=== PATIENT | female | born 1955 | race African-American/Black ===

== ENCOUNTER 2017-06-03 16:22 | Inpatient (IN) | payer MEDICAID ==
[~2017-06-03] VITALS: Ht 162.6 cm; Wt 93.5 kg
--- NOTE | ~2017-06-03 | CON ---
PATIENT'S NAME: SURY TY [facility] AGE: 62 Y [address] ROOM: [place] [address] LOCATION: GPCU ADMIT DATE: 06/03/2017 Consultation DISCHARGE DATE: 06/04/2017 FAMILY PHYSICIAN: Modesto Han MD ATTENDING PHYSICIAN: Gerhard Hobson REFERRING PHYSICIAN: Mohamud Zhang MD REFERRING PHYSICIAN: Gerald Pineda DO. FAMILY PHYSICIAN: Mohamud Zhang MD. REASON FOR CONSULT: Profound bradycardia. HISTORY OF PRESENT ILLNESS: This is a 62-year-old, black female who was admitted to the emergency room via 911. She presented with a chief complaint of chest pressure, apparently the patient found out by her family member was heading to basic training and she fell like she was "getting a little anxious and developed some chest pain, mild shortness of breath, and felt like she was going to pass out." She states I was just "out of it." She reports she has had several episodes of feeling lightheaded. She denied any exertional chest heaviness. She has had problems with shortness of breath intermittently. She denies any presyncope or syncopal episodes. She does carry a history of nonobstructive coronary artery disease as well as hypertension and diabetes mellitus. She underwent a left heart catheterization on 04/11/2016, showing 20%-30% stenosis in three vessels. When EMS arrived to the house, they did notice that her heart rate was 23, junctional rhythm. She was placed on temporary transthoracic pacemaker. Her blood pressures were low in the 80s to 70s. She felt nauseated. She also felt a little diaphoretic. She does answer questions appropriately. There is no report of orthopnea, PND, or pedal edema. PAST MEDICAL HISTORY: 1. Nonobstructive coronary artery disease. 2. Diastolic congestive heart failure. 3. Migraines. 4. Peripheral neuropathy. 5. COPD. 6. Diabetes mellitus. 7. Arthritis. 8. Fibromyalgia. 9. Gastroesophageal reflux disease. 10. Dyslipidemia. PATIENT'S NAME: SURY TY [facility] AGE: 62 Y [address] ROOM: [place] [address] LOCATION: GPCU ADMIT DATE: 06/03/2017 Consultation DISCHARGE DATE: 06/04/2017 FAMILY PHYSICIAN: Modesto Han MD ATTENDING PHYSICIAN: Gerhard Hobson 11. Essential hypertension. 12. History of chronic pancreatitis. PAST SURGICAL HISTORY: 1. 04/11/2016, left heart catheterization with 20%-30% narrowing in three- vessel. 2. x2. 3. Hernia repair. 4. Left leg ORIF. 5. She had a heart catheterization radial approach in 2008. ALLERGIES: PENICILLIN, MILK CONTAINING PRODUCTS, IBUPROFEN, TRAMADOL, CEPHALEXIN. HOME MEDICATIONS: 1. Albuterol HFA two puffs q.6 hours p.r.n. 2. Aspirin 81 mg daily. 3. Atorvastatin 20 mg daily. 4. Invokana 300 mg every day. 5. Advair 500/50 Diskus one puff b.i.d. 6. Furosemide 20 mg every day p.r.n. edema. 7. Gabapentin 300 mg p.o. t.i.d. 8. Insulin Levemir 20 units subcu h.s. 9. Humalog insulin per insulin sliding scale. 10. Losartan/hydrochlorothiazide 100/25 one p.o. daily. 11. Metformin 1000 mg b.i.d. 12. Metoprolol 100 mg every day. 13. Singulair 10 mg every day. 14. Oxycodone HCl/acetaminophen 1-2 tabs every 4-6 hours as needed. 15. Protonix 40 mg every day. 16. Diltiazem 360 mg p.o. daily. FAMILY HISTORY: Mother had congestive heart failure, pneumonia, and stroke, she is . Father had pancreatic cancer, he is . Has a well-living child. SOCIAL HISTORY: She smoked a half pack of cigarettes a day for 6 years, she quit in 1997. REVIEW OF SYSTEMS: GENERAL: She has been a little more fatigued. She has complaints of increased anxiety. HEAD: No history of headache. EYES: She wears corrective lenses. EARS: She does have some hearing loss. PATIENT'S NAME: SURY TY [facility] AGE: 62 Y [address] ROOM: [place] [address] LOCATION: GPCU ADMIT DATE: 06/03/2017 Consultation DISCHARGE DATE: 06/04/2017 FAMILY PHYSICIAN: Modesto Han MD ATTENDING PHYSICIAN: Gerhard Hobson NOSE: No problems with rhinorrhea. She does complain of seasonal allergy. MOUTH: She is edentulous. THROAT: No difficulty with swallowing. PULMONARY: Denies cough or hemoptysis. GASTROINTESTINAL: Negative for nausea, vomiting, or diarrhea. No melena or hematochezia. She has had a little nausea today. MUSCULOSKELETAL: She has a history of fractured leg. She does walk with a limp and a cane at a time. NEUROLOGIC: She has problems with fibromyalgia. ENDOCRINE: She has diabetes mellitus. PHYSICAL EXAMINATION: GENERAL: She is awake. Her skin is warm and dry. She complains of pain with pacemaker pacing. EYES: Pupils were equal, round, and react briskly. NECK: Soft and supple. There is no JVD noted. LUNGS: Sounds were clear. CV: Regular with a 1-1 paced rhythm. ABDOMEN: Soft. Bowel sounds are present. EXTREMITIES: Show no peripheral edema. No clubbing. No cyanosis. VITAL SIGNS: Her height 5 feet 4 inches, her weight is 93.5 kg or 206 pounds. Blood pressure was 80-90. Heart rate was 60 paced rhythm. LABORATORY DATA: INR is 1.05, her glucose was 209, BUN 14, creatinine 1.9. Sodium 139, potassium was reported at 7.3, chloride 109. CBC: White count was 12.6, hemoglobin 12.6, and platelets were 168. ASSESSMENT: 1. Profound bradycardia. We are going to take her to the school laboratory technician for temporary pacemaker. She is hypotensive as well. The etiology is unclear at this time. 2. Hyperkalemia. We will recheck potassium to rule out hemolyzation. 3. Diabetes mellitus. We will ask the hospitalist to follow along with us. The assessment and plan, history of present illness, and physical exam are per Dr. Hobson. PABLO PALMER APRN FOR GERHARD HOBSON MD TGP/modl PATIENT'S NAME: SURY TY [facility] AGE: 62 Y [address] ROOM: [address] [address] [facility] ADMIT DATE: 06/03/2017 Consultation DISCHARGE DATE: 06/04/2017 FAMILY PHYSICIAN: Modesto Han MD ATTENDING PHYSICIAN: Gerhard Hobson /[id number] d: 06/05/17 1405 t: 06/26/17 1619, CONSULTATION REPORT
--- NOTE | ~2017-06-03 | OR ---
PATIENT'S NAME: SURY PENNY [facility] AGE: 62 Y [address] ROOM: [address] [address] LOCATION: GPCU ADMIT DATE: 06/03/2017 OR/Procedure Report DISCHARGE DATE: 06/04/2017 FAMILY PHYSICIAN: Modesto Han MD ATTENDING PHYSICIAN: Gerhard Quinteros SURGEON: Gerhard Quinteros MD SPORTS WRITER: DATE OF PROCEDURE: 06/03/2017 PRIMARY CARE: Dr. Zhang. INDICATION: Symptomatic junctional bradycardia. PROCEDURE: Dual chamber pacemaker implantation. COMPLICATIONS: None. DESCRIPTION OF PROCEDURE: Ms. Penny was brought semi-urgently to the cardiac cath lab radiology technician for pacemaker implantation. External pacemaker was in place. She was prepped and draped in normal manner. 1% lidocaine was used for local skin infiltration in the left infraclavicular region. Next, an 18-gauge Cook needle was advanced into the left subclavian vein, through which a 0.025 wire was placed. The needle was removed. Proximal end of the wire was attached to the surgical gown with a hemostat. Next, a second access point was obtained also with an 18-gauge Cook needle. A 0.025 wire was placed. Needle was removed. Proximal end of the wire was attached to the surgical gown. Attention was then turned towards creation of the pacemaker pocket, where additional 1% lidocaine was given. Next, a #11 blade was used for primary skin incision. Following this, blunt dissection as well as use of Bovie cautery was used for identification of the pectoralis fascia. This was entered into and dissected both cephalad as well as caudally. Next, the previously placed 0.025 wires were brought through the skin into the pacemaker pocket. The first wire had a 6-American sheath placed onto it. The wire and dilator were removed. Next, using fluoroscopic guidance, the right ventricular lead was placed. This was a [employer]ity, model #7741, serial #[id number]. Thresholds were obtained showing an intrinsic R-wave of 14 mV, threshold 0.4 volts, 0.4 msec pulse width, and impedance of 879 ohms. Following this, the shoulder sleeve was anchored into the pectoralis muscle with 2 interrupted sutures of 0 silk. Following this, the second 0.025 wire had a 6-American sheath placed onto it. The wire and dilator were removed. Next, using fluoroscopic, the right atrial lead was placed. This was also a [place] [employer] Ingevity, model #7740. Thresholds were obtained showing an intrinsic P-wave of 2.9 mV, threshold 0.6 V, 0.4 msec pulse width, and impedance of 631 ohms. Next, the shoulder sleeve was anchored into the pectoralis muscle using 2 interrupted sutures of 0 silk. PATIENT'S NAME: SURY PENNY [facility] AGE: 62 Y [address] ROOM: [place] [address] LOCATION: GPCU ADMIT DATE: 06/03/2017 OR/Procedure Report DISCHARGE DATE: 06/04/2017 FAMILY PHYSICIAN: Modesto Han MD ATTENDING PHYSICIAN: Gerhard Quinteros Following this, both of these leads were then connected to the pacemaker generator, which was a [place] [employer]ent[employer], model #L111, serial #[id number]. Next, the generator was connected. Leads were placed back into the pocket. The overlying subcutaneous tissue was closed with 2-0 Vicryl in a running fashion. Following this, the subcuticular layer was closed with 4-0 Vicryl also in a running fashion. Steri-Strips were applied as well as pressure dressing and Tegaderm. The patient had been placed in a shoulder immobilizer prior to the onset of the study. CONCLUSION: 1. Dual-chamber pacemaker implantation for symptomatic junctional bradycardia. 2. The patient is instructed to use the shoulder immobilizer for the next 1 week. 3. The patient will be instructed on use of the home remote monitoring Hudson system. 4. Chest x-ray is pending at the time of this dictation. I would like to thank Dr. Zhang for the opportunity to participate in the care of Mrs. Penny. MD SHASHI TAYLOR/scotty /[id number] CC: Mohamud Zhang MD d: t: 07/03/17 0826, OPERATIVE SUMMARY
--- NOTE | ~2017-06-03 | ER ---
PATIENT'S NAME: SURY TY [facility] AGE: 62 Y [address] ROOM: [place] [id number] LOCATION: GPCU ADMIT DATE: 06/03/2017 ER/Outpatient Report DISCHARGE DATE: FAMILY PHYSICIAN: Modesto Han MD ATTENDING PHYSICIAN: Gerhard Quinteros Time of Arrival: 1621 hours. Time of Evaluation: 1621 hours. CHIEF COMPLAINT: Chest pressure. HISTORY OF PRESENT ILLNESS: The patient is a 62-year-old female, who presents to the emergency department today with a chief complaint of chest pressure. Apparently, the patient found out her family member was heading to basic training. She reports she felt like she was getting anxious with this. She developed this chest pressure at that time. She does have some mild shortness of breath with this. She does feel like she was going to pass out. When EMS arrived, she was noted to have heart rate 23. She denies any fevers or chills. No nausea or vomiting. The patient continues to be alert and oriented. PAST MEDICAL HISTORY: Hypertension, diastolic congestive heart failure, migraines, peripheral neuropathy, COPD, arthritis, fibromyalgia, gastroesophageal reflux disease, diabetes type 2. PAST SURGICAL HISTORY: x2, hernia repair, left leg open reduction and internal fixation. FAMILY HISTORY: Mother with history of heart failure as well as pneumonia and stroke. Father with history of pancreatic cancer. SOCIAL HISTORY: The patient is a former cigarette smoker. Smoked half pack per day per week for 6 years. Quit in 1987. Denies any alcohol or illicit drug use. ALLERGIES: TO PENICILLIN, WHICH CAUSES A RASH. IBUPROFEN CAUSES NAUSEA AND INDIGESTION. TRAMADOL CAUSES RASH AND ITCHING. CEPHALEXIN CAUSES STOMACHACHE AND ITCHING. MEDICATIONS: Please see list. PATIENT'S NAME: SURY TY [facility] AGE: 62 Y [address] ROOM: [address] [address] LOCATION: GPCU ADMIT DATE: 06/03/2017 ER/Outpatient Report DISCHARGE DATE: FAMILY PHYSICIAN: Modesto Han MD ATTENDING PHYSICIAN: Gerhard Quinteros PRIMARY CARE DOCTOR: Dr. Zhang. REVIEW OF SYSTEMS: All systems are reviewed by myself and are negative with the exception of those discussed in the HPI and past medical history. PHYSICAL EXAMINATION: VITAL SIGNS: The patient is currently being paced at 60 beats per minute, blood pressure is 93/67, oxygen saturation 96% on 4 L nasal cannula, temperature 98.4. GENERAL: The patient is a 62-year-old female, who appears stated age. She is sleepy after receiving Valium, however, she will awaken and answer questions. She is oriented to person, place, and time and president. NECK: Supple. There is no nuchal rigidity. CARDIOVASCULAR: Bradycardic. No murmurs, rubs, or gallops. LUNGS: Clear to auscultation bilaterally. No wheezes, rales, or rhonchi. ABDOMEN: Soft, nontender, and nondistended. No rebound, rigidity, or guarding. MUSCULOSKELETAL: The patient moves all 4 extremities. NEUROLOGICAL: GCS of 14. Oriented to person, place, time, and president. SKIN: Warm and dry. LABORATORY DATA AND X-RAYS: Labs and x-rays are obtained. Multiple EKGs are obtained. The first one at 1559 hours from EMS. It does show a junctional rhythm with a rate of 23, normal axis, AZ interval 174, QTc of 548. No ST elevation or ST depression, T- wave inversions. Repeat EKG here in the emergency department at 1645 hours shows sinus rhythm with a rate of 41, normal axis, QTc of 515, AZ interval 204. No ST elevation or ST depression, T-wave inversions. CBC: White blood cell count 12.6, otherwise normal. Coags are normal. CMP is obtained. The potassium is reported at 7.3, creatinine is 1.9, glucose 209. ProBNP is 126. One-view chest x-ray is obtained, is interpreted by myself, shows no acute process. IMPRESSION: 1. Symptomatic bradycardia, severe, requiring pacing. 2. Hypotension due to symptomatic bradycardia. 3. Hyperkalemia versus pseudohyperkalemia, awaiting repeat analysis. 4. Critical care time 34 minutes. 5. Initial visit. EMERGENCY DEPARTMENT COURSE: The patient was brought back to the examination room. Seen and evaluated by myself immediately upon arrival. I did contact Dr. Quinteros before the patient PATIENT'S NAME: SURY TY [facility] AGE: 62 Y [address] ROOM: [id number] [place], [place] [address] [facility] ADMIT DATE: 06/03/2017 ER/Outpatient Report DISCHARGE DATE: FAMILY PHYSICIAN: Modesto Han MD ATTENDING PHYSICIAN: Gerhard Quinteros was even here. He does report he will be over as soon as possible for evaluation. Dr. Aldair Piper's PA is actually in the ER and is at the bedside as well. The patient is remarkably awake and interactive. She was given Versed 1 mg IV for sedation. She already had been given 5 mg of Valium for sedation. The patient was given 2 L of normal saline IV bolus. Her pressure initially is unreadable on our monitor here. She was started on dopamine drip at 5. This was increased to 10. Blood pressure does improve. Dr. Quinteros did arrive and evaluate the patient. The patient remains on dopamine. When the pacer is stopped to evaluate EKG, the patient's heart rate remains in the upper 40s. She continues to mentate. The pacemaker is not restarted that time. The patient will proceed to the lab clerk for pacemaker insertion by Dr. Quinteros. Please see his dictation. Of note, the patient's potassium does return at 7.3. The EKG is not consistent with this elevation of potassium so a recheck is awaiting. Prior to those results returning the patient is transfered to the lab clerk. The patient did require a cumulative critical care time of 34 minutes. This did include discussion with the patient, discussion with consultants, ordering tests, reviewing tests, as well as close monitoring to a patient who is hypotensive with symptomatic bradycardia, in active chest pain. DISPOSITION: The patient is admitted under the care of Dr. Quinteros and taken directly to the lab clerk for pacemaker insertion in fair condition. DO KEVIN ZABALA/scotty /[id number] d: 06/03/17 2251 t: 06/04/17 0621, OUTPATIENT REPORT
[~2017-06-03 16:22] MED LIST changes: -ADVAIR 500-501 EACH INH; -CARDIZEM CD360 MG PO; -INVOKANA300 MG PO; -LASIX20 MG PO; -LIPITOR20 M1 PO; -MONTELUKAST SOD10 MG PO; -NEURONTIN300 MG PO
[2017-06-03 16:37] LABS: BASOPHIL # 0.1 K/uL (0.0-0.2); BASOPHIL % 0.6 %; EOSINOPHIL # 0.3 K/uL (0.0-0.5); HEMATOCRIT 39.1 % (33.0-46.0); HEMOGLOBIN 12.6 g/dL (10.0-15.0); IMMATURE GRANULOCYTE # 0.1 K/uL (0.0-0.3); IMMATURE GRANULOCYTE % 0.5 %; LYMPHOCYTE # 2.5 K/uL (0.8-4.0); LYMPHOCYTE % 19.4 %; MCH 31.3 pg (27.0-34.0); MCHC 32.2 gm/dL (32.0-36.5); MCV 97.3 fl (83.0-98.0); MONOCYTE # 0.9 K/uL (0.0-1.0); MONOCYTE % 6.8 %; MPV 11.1 fl (9.4-12.4); NEUTROPHIL # (ANC) 8.9 K/uL (1.8-7.8); NEUTROPHIL % 70.7 %; NRBC % 0 /100WBC (0-0.00); PLATELET COUNT 168 K/uL (150-450); RBC 4.02 M/uL (3.50-5.50); RDW-CV 14.6 % (11.9-14.6); WBC 12.6 K/uL (4.0-11.0)
[2017-06-03 16:45] LABS: INR - (THERAPEUTIC) 1.05 (0.92-1.07); PTT 25 SECONDS (25-32)
[2017-06-03 16:56] LABS: ALBUMIN 3.3 gm/dL (3.5-5.0); ALK PHOS 87 IU/L (33-138); ALT 36 IU/L (12-78); AST 30 IU/L (10-40); BLOOD UREA NITROGEN 14 mg/dL (6-24); CHLORIDE 109 mMol/L (96-110); CO2 24 mMol/L (22-32); CPK 129 IU/L (21-215); CREATININE 1.9 mg/dL (0.5-1.1); MAGNESIUM 2.1 mg/dL (1.8-2.6); SODIUM 139 mMol/L (135-145); TOTAL BILIRUBIN 0.5 mg/dL (0.0-1.5); TOTAL PROTEIN 6.8 g/dL (6.0-8.4)
[2017-06-03 16:58] LABS: ANION GAP 13.3 (10.0-19.0); POTASSIUM 7.3 mMol/L (3.7-5.1)
[2017-06-03 17:38] LABS: ALBUMIN 3.7 gm/dL (3.5-5.0); CALCIUM 8.1 mg/dL (8.5-10.5); CREATININE 1.8 mg/dL (0.5-1.1); TOTAL BILIRUBIN 0.5 mg/dL (0.0-1.5); TOTAL PROTEIN 7.3 g/dL (6.0-8.4)
[2017-06-03] MEDS ORDERED: CARDIZEM CD360 MG PO (19:55)
[2017-06-03] MEDS ORDERED: NEURONTIN300 MG PO (20:01)
[2017-06-03] MEDS ORDERED: INVOKANA300 MG PO (20:02)
[2017-06-03] MEDS ORDERED: MONTELUKAST SOD10 MG PO (20:04)
[2017-06-03] MEDS ORDERED: LIPITOR20 M1 PO (20:05)
[2017-06-03] MEDS ORDERED: PERCOCET 5-3251 EACH PO (20:08)
[2017-06-03] MEDS ORDERED: ADVAIR 500-501 EACH INH (20:14)
[2017-06-03] MEDS ORDERED: LASIX20 MG PO (20:18)
--- NOTE | 2017-06-03 20:49 | NUR ---
62 Y/O FEMALE ADMITTED FOR BRADYCARDIA PER AMBULANCE FROM THE DOCTORS OFFICE TODAY AND HAD A PACEMAKER PLACED. PT IS IN HER ROOM CURRENTLY & IS A& [facility]. PTIS ABLE TO MOVE ALL 4 EXTREMITIES BUT DOES HAVE HER LEFT ARM IN AN IMMOBILZER. ALLERGIES - PENICILLINS, ULTRAM, MEFOXIN, IBUPROFEN AND LACTOSE INTOLERANCE. MEDICAL & SURGICAL HISTORY - DMII FOR OVER 25 YEARS, HYPERTENSION, VALVE DISEASE, CHF, DIASTOLIC DYSFUNCTION, EDEMA, COPD, EMPHYSEMA, ARTHRITIS, FIBROMYALGIA, GERD, CONSTIPATION, OCC STRESS INCONT & YEAST INFECTIONS. HX OF SMOKING IN PAST, QUIT IN 1987 BUT IS AROUND SECOND HAND SMOKE. ALSO HISTORY OF DEPRESSION & ANXIETY. SURGERIES - C/SECTIONS X2, UMBELICAL HERNIA REPAIR, LT LEG ORIF, HEART CATH X2 BUT HAS NO STENTS PT STATES. REPORT GIVEN TO PT PRIMARY CARE NURSE SONNY WORRELL
--- NOTE | 2017-06-04 03:10 | NUR ---
Significant Event: A/0X3. [place]. TURNS SELF. SBA UP TO BR. AFEBRILE. HR 60-70'S PACED. SBP 106-130'S. WEANED PATIENT OFF DOPAMINE AROUND 0032. SUPPOSE TO KEEP SBP >100. LOW TO MID 90'S ON 1L. NORCO GIVEN X1. PATIENT WAS ABLE TO FIND SOME RELIEF. ALSO PUT A ICE PACK TO PACER SITE PRN. IMMOBILIZER TO L) ARM. DRESSING C/D/I. IV TO L) AC AND R) FA SL. VOIDS FINE. NO BM THIS SHIFT. NO C/O OF N/V THIS SHIFT. CHEST XRAY THIS AM. Follow up: CONTINUE WITH PLAN OF CARE.
[2017-06-04 04:43] LABS: BASOPHIL # 0.1 K/uL (0.0-0.2); BASOPHIL % 0.4 %; EOSINOPHIL # 0.1 K/uL (0.0-0.5); EOSINOPHIL % 0.6 %; HEMATOCRIT 36.2 % (33.0-46.0); HEMOGLOBIN 11.8 g/dL (10.0-15.0); IMMATURE GRANULOCYTE % 0.3 %; LYMPHOCYTE # 2.8 K/uL (0.8-4.0); LYMPHOCYTE % 21.4 %; MCH 30.8 pg (27.0-34.0); MCHC 32.6 gm/dL (32.0-36.5); MCV 94.5 fl (83.0-98.0); MONOCYTE # 1.2 K/uL (0.0-1.0); MONOCYTE % 9.2 %; MPV 11.1 fl (9.4-12.4); NEUTROPHIL # (ANC) 8.8 K/uL (1.8-7.8); NEUTROPHIL % 68.1 %; NRBC % 0 /100WBC (0-0.00); PLATELET COUNT 174 K/uL (150-450); RBC 3.83 M/uL (3.50-5.50); RDW-CV 14.6 % (11.9-14.6)
[2017-06-04 04:54] LABS: ALBUMIN 3.4 gm/dL (3.5-5.0); CALCIUM 7.9 mg/dL (8.5-10.5); CREATININE 1.6 mg/dL (0.5-1.1); PHOSPHORUS 4.2 mg/dL (2.5-4.9)
[2017-06-04 05:02] LABS: ANION GAP 12.6 (10.0-19.0); POTASSIUM 5.6 mMol/L (3.7-5.1)
[2017-06-04 08:41] LABS: BILIRUBIN URINE NEGATIVE (NEGATIVE); BLOOD URINE 10 /UL (NEGATIVE); COLOR URINE YELLOW (YELLOW); GLUCOSE URINE 250 mg/dL (NEGATIVE); KETONE URINE NEGATIVE (NEGATIVE); LEUKOCYTES URINE 25 /UL (NEGATIVE); NITRITE URINE NEGATIVE (NEGATIVE); PROTEIN URINE NEGATIVE (NEGATIVE); SPEC GRAVITY URINE 1.025 (1.003-1.035); TURBIDITY URINE CLEAR (CLEAR); UROBILINOGEN URINE NORMAL (NORMAL)
[2017-06-04 09:19] LABS: EPITHELIAL URINE 0-2 #/HPF (NEGATIVE); WBC URINE 0-2 #/HPF (NEGATIVE)
[2017-06-04 09:20] LABS: BACTERIA URINE NEGATIVE (NEGATIVE)
--- NOTE | 2017-06-04 11:29 | NUR ---
Introduced self and CM role to Ela and her S/O Shivam who was at bedside. Ela tells me that she lives here in [place] with S/O and plans to return there when she is medically cleared to do so. S/O will take her home. PCP is . Ela manages her medications at baseline and will continue to do. She gets her medications filled at [facility]. Ela has a FWW that she uses at baseline from time to time. Denies any other DME or HHC needs at this time. No other questions, needs or concerns. Plan home. Left my name on her whiteboard incase she has any other questions that might come up. CM to continue to follow and assist.
--- NOTE | 2017-06-04 17:46 | NUR ---
PATIENT DISMISSED TO HOME WITH SIGNIFICANT OTHER. DENIES QUESTIONS OR CONCERNS WITH DISMISSAL. IVs D/Cd. HEART FAILURE EDUCATION COMPLETED.
== END 2017-06-04 17:15 | disposition disaster alternative care site (69) | DRG 243 ==
LOC: GMED 16:22 → GPCU 17:17
PROVIDERS: Emergency Medicine; ADMIT Internal Medicine Interventional Cardiology
DX: R00.1 Bradycardia, unspecified (principal); N17.9 Acute kidney failure, unspecified; E11.22 Type 2 diabetes mellitus with diabetic chronic kidney disease; E87.5 Hyperkalemia; I12.9 Hypertensive chronic kidney disease with stage 1 through stage 4 chronic kidney disease, or unspecified chronic kidney disease; N18.9 Chronic kidney disease, unspecified
CPT/HCPCS: C1779; C1785; C1898; J0610; J1265; J2250; J2405; J3010; J3370; J7030

== ENCOUNTER → 2017-06-03 | Outpatient (CLI) | payer MEDICAID ==
[~2017-06-03] MED LIST: ADVAIR 250-501 EACH INH; ADVAIR 500-501 EACH INH; ASPIR 8181 MG PO; CARDIZEM CD (T300 MG PO; CARDIZEM CD360 MG PO; GLUCOPHAGE1000 MG PO; HUMALOG100 UNIT/1 SUB-Q; HYZAAR 50-12.51 TAB PO; INVOKANA300 MG PO; KLOR-CON 1010 MEQ PO; LASIX20 MG PO; LASIX40 MG PO; LEVEMIR FL100 UNIT/1 SUB-Q; LIPITOR20 M1 PO; LOSARTAN-HCTZ1 EAC1 PO; LYRICA 150MG C150 MG PO; MIRALAX17 GM PO; MONTELUKAST SOD10 MG PO; NEURONTIN300 MG PO; PERCOCET 5-3251 EACH PO; PROTONIX40 MG PO; PROVENTIL OR V6.7 GM INH; TOPROL XL100 MG PO
== END | disposition disaster alternative care site (69) ==
LOC: GAMB 15:45
DX: F41.9 Anxiety disorder, unspecified (principal); R07.89 Other chest pain; R53.1 Weakness; R00.1 Bradycardia, unspecified; Z79.82 Long term (current) use of aspirin; Z79.84 Long term (current) use of oral hypoglycemic drugs; Z79.4 Long term (current) use of insulin; Z79.899 Other long term (current) drug therapy; Z88.0 Allergy status to penicillin; Z88.8 Allergy status to other drugs, medicaments and biological substances
CPT/HCPCS: A0422; A0425; A0433; J0461; J3360; J7030

== ENCOUNTER 2017-06-05 20:02 | Observation (INO) | payer MEDICAID ==
[~2017-06-05] VITALS: Ht 162.6 cm; Wt 91.9 kg
--- NOTE | ~2017-06-05 | ER ---
PATIENT'S NAME: SURY TY [facility] AGE: 62 Y [address] ROOM: [place] [address] LOCATION: GPCU ADMIT DATE: 06/05/2017 ER/Outpatient Report DISCHARGE DATE: FAMILY PHYSICIAN: Mohamud Zhang MD ATTENDING PHYSICIAN: Mohamud Zhang Time of Arrival: 2002 hours. Time of Evaluation: 2009 hours. CHIEF COMPLAINT: Chest pain and low blood pressure. HISTORY OF PRESENT ILLNESS: The patient is a 62-year-old female who presents to the emergency department today with a chief complaint of chest pain and low blood pressure. The patient reports that she noted chest pain at 2 p.m. this afternoon. She reports nausea. No vomiting. No shortness of breath. No diaphoresis. It is a sharp and stabbing-type pain. The patient was recently seen and evaluated and had a pacemaker placed. She was discharged yesterday. She reports this pain is in the center of her chest, radiates up into her neck and into her left arm. PAST MEDICAL HISTORY: Insulin-dependent diabetes mellitus, hypertension, diastolic congestive heart failure, migraines, peripheral neuropathy, COPD, arthritis, fibromyalgia, and gastroesophageal reflux disease. PAST SURGICAL HISTORY: Pacemaker, x2, hernia repair, and left leg open reduction and internal fixation. FAMILY HISTORY: Mother with heart failure as well as pneumonia and stroke. Father with pancreatic cancer. SOCIAL HISTORY: The patient is a former cigarette smoker, smoked half a pack per day for 6 years, quit in 1987. Denies any alcohol or illicit drug use. ALLERGIES: PENICILLIN, WHICH CAUSES RASH. IBUPROFEN, WHICH CAUSES NAUSEA AND INDIGESTION. TRAMADOL, WHICH CAUSES RASH AND ITCHING. KEFLEX, WHICH CAUSES STOMACHACHE AND ITCHING. MEDICATIONS: PATIENT'S NAME: SURY TY [facility] AGE: 62 Y [address] ROOM: [place] [id number] LOCATION: GPCU ADMIT DATE: 06/05/2017 ER/Outpatient Report DISCHARGE DATE: FAMILY PHYSICIAN: Mohamud Zhang MD ATTENDING PHYSICIAN: Mohamud Zhang Please see list. PRIMARY CARE DOCTOR: Mohamud Zhang M.D. MEASUREMENT COORDINATOR: Gerhard Quinteros M.D. REVIEW OF SYSTEMS: All systems are reviewed by myself and are negative with the exception of those discussed in the HPI and past medical history. PHYSICAL EXAMINATION: VITAL SIGNS: Blood pressure 178/86, pulse 101, respiratory rate 20, temperature 98.7, and oxygen saturation 95% on room air. GENERAL: The patient is a 62-year-old female, who appears stated age, and in no acute distress at this time. HEENT: Head normocephalic and atraumatic. Pupils are equal, round, and reactive to light. NECK: Supple. There is no nuchal rigidity. CARDIOVASCULAR: Tachycardic. No murmurs, rubs, or gallops. LUNGS: Clear to auscultation bilaterally. No wheezes, rales, or rhonchi. ABDOMEN: Soft, nontender, and nondistended. No rebound, rigidity, or guarding. MUSCULOSKELETAL: The patient moves all 4 extremities. SKIN: The patient's surgical site is clean, dry, and intact. LABORATORY DATA AND X-RAYS: EKG is obtained, is interpreted by myself at 2022 hours, shows sinus rhythm with a rate of 98, normal axis, NV interval 207; no ST elevation, ST depression, or T-wave inversions. Two-view chest x-ray shows no acute process. CBC is unremarkable. CMP is unremarkable except for BUN 33, creatinine 1.7, glucose 248, magnesium is normal, CK is 373, CK-MB is 5.3, troponin 0.053, and proBNP is 283. IMPRESSION: 1. Chest pain, rule out acute coronary syndrome versus recent pacemaker insertion as the cause for elevated troponin. 2. Acute kidney injury. 3. Initial visit. EMERGENCY DEPARTMENT COURSE: The patient was brought back to the examination room. Seen and evaluated by myself. An IV was established. Laboratory analysis and imaging are obtained as described above. The patient is given a liter of normal saline IV. I have PATIENT'S NAME: SURY TY [facility] AGE: 62 Y [address] ROOM: [id number] [place], [place] [address] LOCATION: GPCU ADMIT DATE: 06/05/2017 ER/Outpatient Report DISCHARGE DATE: FAMILY PHYSICIAN: Mohamud Zhang MD ATTENDING PHYSICIAN: Mohamud Zhang discussed results with the patient. I have discussed the case with Dr. Zhang, who will admit the patient for observation. DISPOSITION: The patient is admitted under the care of Dr. Zhang in stable condition. DO KEVIN ZABALA/modl /[id number] d: 06/06/17151 t: 06/06/17 0208, OUTPATIENT REPORT
--- NOTE | ~2017-06-05 | HP ---
[facility] AGE: 62 Y [address] ROOM: [place] [address] LOCATION: [facility] ADMIT DATE: 06/05/2017 History & Physical DISCHARGE DATE: FAMILY PHYSICIAN: Mohamud Zhang MD ATTENDING PHYSICIAN: Mohamud Zhang DATE OF SERVICE: CHIEF COMPLAINT: Chest pain and hypotension. HISTORY OF PRESENT ILLNESS: The patient is a 62-year-old female who started experiencing some chest pain, which she stated was hypotension when she checked her blood pressure at home. The patient denies any fevers, chills, nausea, vomiting, abdominal pain, headaches, or syncopal episodes. The patient was brought to the emergency department and found to have an elevated blood pressure along with elevated troponins and acute renal failure. PAST MEDICAL HISTORY: 1. Chronic diastolic congestive heart failure. 2. Depression. 3. Cardiovascular disease. 4. Diabetes mellitus type 2 with microalbuminuria. 5. Chronic edema. 6. Emphysema. 7. Essential hypertension. 8. Mixed hyperlipidemia. 9. History of pancreatitis. 10. History of peripheral neuropathy. 11. Chronic renal failure stage 2. ALLERGIES: 1. IBUPROFEN. 2. NAPROXEN. 3. PENICILLIN. 4. TRAMADOL. PAST SURGICAL HISTORY: 1. . 2. Pacemaker placement. 3. Colonoscopy. 4. EGD. SOCIAL HISTORY: PATIENT'S NAME: [facility] AGE: 62 Y [address] ROOM: [place] [address] LOCATION: [facility] ADMIT DATE: 06/05/2017 History & Physical DISCHARGE DATE: FAMILY PHYSICIAN: Mohamud Zhang MD ATTENDING PHYSICIAN: Mohamud Zhang Former tobacco user. FAMILY HISTORY: Father with cancer and mother with congestive heart failure. MEDICATIONS: Please see list. REVIEW OF SYSTEMS: A complete review of systems was obtained, pertinent positives and negatives as mentioned in the HPI. OBJECTIVE: VITAL SIGNS: Temperature 98.7, pulse 101, respirations 20, blood pressure is 178/86. GENERAL: The patient is alert and oriented, appears in no acute distress. HEENT: Head: Normocephalic, atraumatic. Eyes: Conjunctivae are clear. No scleral icterus. Mouth: Oropharynx is grossly moist and pink. No lesions or exudates. NECK: Supple. No lymphadenopathy or thyromegaly. HEART: Regular rate and rhythm. No rubs, murmurs, or gallops. LUNGS: Clear to auscultation bilaterally. ABDOMEN: Bowel sounds are present, nontender. EXTREMITIES: No cyanosis. VASCULAR: Pulses are +2 and equal bilaterally. SKIN: No rash or lesions. LYMPHATICS: No lymphadenopathy. NEURO: Cranial nerves 2 through 12 grossly intact. LABORATORY DATA: CBC showed white blood cell count of 8.3, hemoglobin 11.6, creatinine of 1.7, baseline is 1.08, and a blood sugar of 248. Troponin was elevated at 0.053 and so were CK and CK-MB. ASSESSMENT: 1. Cardiovascular disease with recent pacemaker placement with chest pain and elevated cardiac enzymes. 2. History of bradycardia with pacemaker placement. 3. Diabetes mellitus type 2 with microalbuminuria. 4. Acute on chronic renal failure stage 2. 5. Hypertension. 6. Congestive heart failure, diastolic. 7. Emphysema. 8. Depression. 9. Mixed hyperlipidemia. PATIENT'S NAME: SURY TY [facility] AGE: 62 Y [address] ROOM: [place] [address] LOC[facility] ADMIT DATE: 06/05/2017 History & Physical DISCHARGE DATE: FAMILY PHYSICIAN: Mohamud Zhang MD ATTENDING PHYSICIAN: Mohamud Zhang PLAN: At this time, we will start the patient on fluids to help correct her acute renal failure. We will also monitor her sugars and have Cardiology followup for her cardiac issues including or cardiovascular disease and elevated enzymes. We will also start heparin. The patient's congestive heart failure is stable. We will monitor her blood pressure. We will also monitor her emphysema for symptoms. Continue on her cholesterol medication and monitor her depression symptoms. MD JADE LOCKETT/scotty /[id number] D: T: 220 HISTORY & PHYSICAL
[~2017-06-05 20:02] MED LIST changes: +ADVAIR 500-501 EACH INH; +CARDIZEM CD360 MG PO; +INVOKANA300 MG PO; +LASIX20 MG PO; +LIPITOR20 M1 PO; +MONTELUKAST SOD10 MG PO; +NEURONTIN300 MG PO
[2017-06-05 20:40] LABS: BASOPHIL % 0.1 %; EOSINOPHIL # 0.1 K/uL (0.0-0.5); EOSINOPHIL % 1.2 %; HEMATOCRIT 33.8 % (33.0-46.0); HEMOGLOBIN 11.6 g/dL (10.0-15.0); IMMATURE GRANULOCYTE % 0.2 %; LYMPHOCYTE # 1.8 K/uL (0.8-4.0); LYMPHOCYTE % 21.1 %; MCH 32.4 pg (27.0-34.0); MCHC 34.3 gm/dL (32.0-36.5); MCV 94.4 fl (83.0-98.0); MONOCYTE # 0.7 K/uL (0.0-1.0); MONOCYTE % 8.9 %; MPV 11.3 fl (9.4-12.4); NEUTROPHIL # (ANC) 5.7 K/uL (1.8-7.8); NEUTROPHIL % 68.5 %; NRBC % 0 /100WBC (0-0.00); PLATELET COUNT 145 K/uL (150-450); RBC 3.58 M/uL (3.50-5.50); RDW-CV 14.6 % (11.9-14.6); WBC 8.3 K/uL (4.0-11.0)
[2017-06-05 21:00] LABS: ALBUMIN 3.7 gm/dL (3.5-5.0); ANION GAP 12.7 (10.0-19.0); CALCIUM 8.3 mg/dL (8.5-10.5); CREATININE 1.7 mg/dL (0.5-1.1); MAGNESIUM 2.2 mg/dL (1.8-2.6); POTASSIUM 4.7 mMol/L (3.7-5.1); TOTAL BILIRUBIN 0.6 mg/dL (0.0-1.5); TOTAL PROTEIN 7.3 g/dL (6.0-8.4)
[2017-06-05 21:18] LABS: INR - (THERAPEUTIC) 1.03 (0.92-1.07); PROTIME 10.8 SECONDS (9.8-11.4); PTT 27 SECONDS (25-32)
[2017-06-06 04:25] LABS: CPK 302 IU/L (21-215)
[2017-06-06 04:27] LABS: ANION GAP 10.3 (10.0-19.0); CALCIUM 8.2 mg/dL (8.5-10.5); CREATININE 1.3 mg/dL (0.5-1.1); POTASSIUM 4.3 mMol/L (3.7-5.1)
[2017-06-06 08:27] LABS: CPK 305 IU/L (21-215)
== END 2017-06-06 19:30 | disposition disaster alternative care site (69) ==
LOC: GMED 20:02 → GPCU 21:57
PROVIDERS: Emergency Medicine; ADMIT Family Medicine
DX: R07.9 Chest pain, unspecified (principal); I95.9 Hypotension, unspecified; F32.9 Major depressive disorder, single episode, unspecified; J43.9 Emphysema, unspecified; E78.2 Mixed hyperlipidemia; E11.22 Type 2 diabetes mellitus with diabetic chronic kidney disease; I13.0 Hypertensive heart and chronic kidney disease with heart failure and stage 1 through stage 4 chronic kidney disease, or unspecified chronic kidney disease; N18.2 Chronic kidney disease, stage 2 (mild); I50.32 Chronic diastolic (congestive) heart failure; E11.69 Type 2 diabetes mellitus with other specified complication; N17.9 Acute kidney failure, unspecified; G43.909 Migraine, unspecified, not intractable, without status migrainosus; E11.42 Type 2 diabetes mellitus with diabetic polyneuropathy; M19.90 Unspecified osteoarthritis, unspecified site; K21.9 Gastro-esophageal reflux disease without esophagitis; Z87.891 Personal history of nicotine dependence; Z98.890 Other specified postprocedural states; Z95.0 Presence of cardiac pacemaker; Z79.82 Long term (current) use of aspirin; Z79.4 Long term (current) use of insulin; Z79.899 Other long term (current) drug therapy; Z88.0 Allergy status to penicillin; Z88.8 Allergy status to other drugs, medicaments and biological substances; Z88.5 Allergy status to narcotic agent; Z88.1 Allergy status to other antibiotic agents
CPT/HCPCS: G0378; J1644; J2270; J7030

== ENCOUNTER 2017-06-11 18:49 | Emergency (ER) | payer MEDICAID ==
--- NOTE | ~2017-06-11 | ER ---
PATIENT'S NAME: SURY TY [facility] AGE: 62 Y [address] ROOM: [place] [address] LOCATION: ED ADMIT DATE: 06/11/2017 ER/Outpatient Report DISCHARGE DATE: 06/11/2017 FAMILY PHYSICIAN: Mohamud Zhang MD ATTENDING PHYSICIAN: Rafat Camargo Time of Arrival: Admission date and time documented on the medical record. Time of Evaluation: I saw the patient at 1900 hours. CHIEF COMPLAINT: Mid anterior chest pain, nonradiating. HISTORY OF PRESENT ILLNESS: This patient is a 62-year-old female, who was sitting at home when she developed mid anterior, mid sternal chest pain. The patient about a week ago had severe bradycardia, ended up getting a pacemaker placed. She was discharged. She returned and was admitted to the hospital this past and then dismissed on Friday because of swelling over the pacemaker site. Still has a little bit of swelling over the pacemaker site, but has tenderness across her anterior chest, especially midsternal. Some mild shortness of breath. No diaphoresis. No nausea, vomiting, diarrhea, or urinary complaints. No lightheadedness, dizziness, syncope, or near syncope. No fall or trauma. No recent cold, coughs, flus, fever, chills, or sweats. Does have a history of nonobstructive coronary artery disease. No catheter interventions. She had does have insulin-dependent diabetes mellitus type 2, peripheral neuropathy, fibromyalgia, and degenerative osteoarthritis. She is a remote tobacco abuser. HOME MEDICATIONS: See attached medication list. ALLERGIES: PENICILLIN, MILK PRODUCTS, IBUPROFEN, TRAMADOL, AND CEPHALEXIN. SOCIAL HISTORY: Nonsmoker, nondrinker. SIGNIFICANT PAST MEDICAL HISTORY: Atherosclerotic ischemic heart disease, nonobstructive coronary artery disease, bradycardia, hypertension, insulin-dependent diabetes mellitus type 2, diastolic congestive heart failure, headaches, peripheral neuropathy secondary to diabetes, COPD, degenerative osteoarthritis, fibromyalgia, gastroesophageal reflux, dyslipidemia, chronic pancreatitis, and remote tobacco abuse. PATIENT'S NAME: SURY TY [facility] AGE: 62 Y [address] ROOM: [place] [address] LOCATION: ED ADMIT DATE: 06/11/2017 ER/Outpatient Report DISCHARGE DATE: 06/11/2017 FAMILY PHYSICIAN: Mohamud Zhang MD ATTENDING PHYSICIAN: Rafat Camargo OPERATION: Left leg open reduction and internal fixation, cardiac catheterization, pacemaker placement, x2, and herniorrhaphy. REVIEW OF SYSTEMS: All systems reviewed by me are negative with the exception of those discussed in the history of present illness. PHYSICAL EXAMINATION: VITAL SIGNS: Temperature 97.8, tympanic; pulse 73, regular; respirations 22; blood pressure 167/100; and O2 saturation on room air was 95%. [place] Coma Scale was 15. HEAD: Normocephalic. EYES: Extraocular muscles intact. PERRL. EARS: Clear TMs bilaterally. NOSE AND THROAT: Clear. Mucous membranes moist. Teeth, jaw intact. NECK: No nuchal rigidity. No thyromegaly or cervical adenopathy. No tenderness. SPINE: Nontender. No deformity. LUNGS: Clear. Good air flow. No rales, rhonchi, or wheezes. HEART: Regular. Pulses palpable. The patient has tenderness, especially midsternal anteriorly as well as laterally of the sternum on the right and left side. Has mild swelling over the pacemaker site. No redness, no drainage, not hot to the touch. ABDOMEN: Soft, nondistended, nontender. Good bowel tones. No organomegaly or abnormal mass palpable. No CVA tenderness. EXTREMITIES: Without peripheral edema, cyanosis, or deformity. NEUROVASCULAR: Intact. SKIN: Clear. No skin eruptions or rash. LABORATORY DATA AND X-RAYS: EKG showed atrial pacing. No acute ST elevation, ischemic change, or arrhythmia. Chest x-ray showed no acute changes or infiltrate. We will review x-ray with the radiologist. Laboratory: CMS was normal except for an elevated chloride of 111, elevated glucose 180, magnesium was 1.5, CPK was 202. Cardiac enzymes were normal. White count was 8600, 60 segs, 28 lymphs, 9 monos, 3 eos, 1 baso; hemoglobin was 12.1 with hematocrit 36.2; platelet count was 164,000. PTT was 28, pro- time was 10.7, INR 1.02. ProBNP was 75. D-dimer was 0.8. IMPRESSION: 1. Mid anterior chest pain, midsternal pain, reproducible with palpation. No evidence of cardiac or respiratory etiology. This most likely is musculoskeletal. The patient recently had a pacemaker placed about a PATIENT'S NAME: SURY TY [facility] AGE: 62 Y [address] ROOM: [place] [address] LOCATION: [facility] ADMIT DATE: 06/11/2017 ER/Outpatient Report DISCHARGE DATE: 06/11/2017 FAMILY PHYSICIAN: Mohamud Zhang MD ATTENDING PHYSICIAN: Rafat Camargo week ago for bradycardia. 2. History of nonobstructive coronary artery disease. 3. Hypertension. 4. Insulin-dependent diabetes mellitus type 2. 5. Diastolic congestive heart failure. 6. Chronic obstructive pulmonary disease. 7. History of degenerative osteoarthritis and fibromyalgia. 8. Dyslipidemia. 9. Gastroesophageal reflux. 10. Remote tobacco abuse. PLAN: The patient dismissed home. Observation. Activity as tolerated. Continue present home medications and care. Cold packs to sore areas intermittently as needed. Continue the pain medications at home. Follow up with personal physician in 1 to 2 days for repeat exam. Discussion ensued with the patient concerning my findings and recommendations, she understands. MD [place] BYRNES/modl /[id number] d: 06/12/17 0104 t: 06/12/17 1817, OUTPATIENT REPORT
[2017-06-11 19:34] LABS: BASOPHIL # 0.1 K/uL (0.0-0.2); BASOPHIL % 0.6 %; EOSINOPHIL # 0.3 K/uL (0.0-0.5); HEMATOCRIT 36.2 % (33.0-46.0); HEMOGLOBIN 12.1 g/dL (10.0-15.0); IMMATURE GRANULOCYTE % 0.2 %; LYMPHOCYTE # 2.4 K/uL (0.8-4.0); LYMPHOCYTE % 28.2 %; MCH 31.9 pg (27.0-34.0); MCHC 33.4 gm/dL (32.0-36.5); MCV 95.5 fl (83.0-98.0); MONOCYTE # 0.7 K/uL (0.0-1.0); MONOCYTE % 8.5 %; MPV 11.7 fl (9.4-12.4); NEUTROPHIL # (ANC) 5.1 K/uL (1.8-7.8); NEUTROPHIL % 59.5 %; NRBC % 0 /100WBC (0-0.00); PLATELET COUNT 164 K/uL (150-450); RBC 3.79 M/uL (3.50-5.50); RDW-CV 14.7 % (11.9-14.6); WBC 8.6 K/uL (4.0-11.0)
[2017-06-11 19:42] LABS: INR - (THERAPEUTIC) 1.02 (0.92-1.07); PROTIME 10.7 SECONDS (9.8-11.4); PTT 28 SECONDS (25-32)
[2017-06-11 19:54] LABS: ALBUMIN 3.4 gm/dL (3.5-5.0); ALK PHOS 79 IU/L (33-138); ALT 33 IU/L (12-78); ANION GAP 13.1 (10.0-19.0); AST 17 IU/L (10-40); BLOOD UREA NITROGEN 6 mg/dL (6-24); CALCIUM 7.9 mg/dL (8.5-10.5); CHLORIDE 111 mMol/L (96-110); CO2 22 mMol/L (22-32); CPK 202 IU/L (21-215); CREATININE 1.1 mg/dL (0.5-1.1); MAGNESIUM 1.5 mg/dL (1.8-2.6); POTASSIUM 4.1 mMol/L (3.7-5.1); SODIUM 142 mMol/L (135-145); TOTAL BILIRUBIN 0.3 mg/dL (0.0-1.5)
== END 2017-06-11 20:21 | disposition disaster alternative care site (69) ==
LOC: GMED 18:49
PROVIDERS: Emergency Medicine
DX: R07.2 Precordial pain (principal); R07.9 Chest pain, unspecified; I25.10 Atherosclerotic heart disease of native coronary artery without angina pectoris; E11.9 Type 2 diabetes mellitus without complications; I11.0 Hypertensive heart disease with heart failure; I50.9 Heart failure, unspecified; J44.9 Chronic obstructive pulmonary disease, unspecified; K21.9 Gastro-esophageal reflux disease without esophagitis; M19.90 Unspecified osteoarthritis, unspecified site; M79.7 Fibromyalgia; E78.5 Hyperlipidemia, unspecified; Z98.890 Other specified postprocedural states; Z91.011 Allergy to milk products; Z95.0 Presence of cardiac pacemaker; Z88.8 Allergy status to other drugs, medicaments and biological substances; Z88.1 Allergy status to other antibiotic agents; Z88.5 Allergy status to narcotic agent; Z87.891 Personal history of nicotine dependence; Z88.0 Allergy status to penicillin